=== PATIENT | male | born 1990 | race Caucasian/White ===

== ENCOUNTER 2023-08-29 11:42 | Day surgery (SDC) | payer OTHER ==
[~2023-08-29] VITALS: Ht 175.3 cm; Wt 68.0 kg
[~2023-08-29 11:42] MED LIST: IOHEXOL 300 mgI/mL, 50 mL INFUS..BTL IV ONE; LIDOCAINE 2%, 20 ML MDV ONE; NORMAL SALINE 10 ML VIAL ONE; methylPREDNISolone ACETATE 40 MG/ML ONE
[2023-08-29] MEDS ORDERED: DIPHENHYDRAMINE INJ 50 MG/ML VIAL ONE (12:04)
[2023-08-29] MEDS: INSULIN REGULAR, HUMAN 100 UNITS/ML, 3 ML VIAL SUBCUT ONE (12:33)
[2023-08-29 12:35] VITALS: O2SAT 100
[2023-08-29] MEDS: MIDAZOLAM HCL 5 MG/5 ML VIAL ONE (14:25)
[2023-08-29] MEDS: fentaNYL CITRATE/PF 100 MCG/2 ML AMP ONE (14:25)
[2023-08-29 16:35] VITALS: BP_SYST 112; PULSE 79; RESP 16
== END 2023-08-29 15:40 | disposition home or self-care (01) ==
LOC: SDS 11:42 → SMU 11:47 → SDS 15:40
PROVIDERS: ATTEND Internal Medicine
DX: M51.16 Intervertebral disc disorders with radiculopathy, lumbar region (principal); E11.9 Type 2 diabetes mellitus without complications; Z79.84 Long term (current) use of oral hypoglycemic drugs; Z98.890 Other specified postprocedural states
CPT/HCPCS: 62323; 82948; J1815; J1030; J2250; J3010; Q9967; 76000; J1200; J2001